=== PATIENT | female | born 1990 | race Caucasian/White ===

== ENCOUNTER 2018-09-03 16:21 | Emergency (ER) | payer SELFPAY ==
[2018-09-03 16:21] VITALS: BP 121/84; PULSE 88; RESP 14; TEMP 37.5; O2SAT 100; BMI 26.5
--- NOTE | 2018-09-03 16:31 | US_ITS ---
STUDY: FIRST TRIMESTER OBSTETRICAL ULTRASOUND REASON FOR EXAM: Female, 28 years old. Intermittent bleeding. Cramping. LMP: 07/27/2018 TECHNIQUE: Transvaginal TECHNICAL QUALITY: Adequate. PRIOR ULTRASOUND: None. FINDINGS: There are 2 separate anechoic structures in the endometrial cavity. One of these is clearly intrauterine gestation with a mean sac diameter of 1.2 cm and within which a normal yolk sac is seen measuring 3 mm. The other is lower in the endometrial cavity and measures 1.2 cm, with some low-level internal echoes and is of uncertain etiology. The placenta is non-visualized. There is visualization of a live embryo. The crown-rump length (CRL) measures 3.2 mm, indicating an estimated gestational age (EGA) of 6 weeks, 0 days. There is demonstrated cardiac activity with a heart rate of 122 bpm. The estimated gestation age (EGA) by LMP is 5 weeks, 3 days. The estimated date of delivery (RONY) by LMP is 05/03/2019. The estimated gestation age (EGA) by US is 6 weeks, 0 days. The estimated date of delivery (RONY) by US is 04/29/2019. The uterus measures 7.9 x 5.8 x 3.9 cm. There is no demonstrated uterine fibroid. The cervix is closed. The right ovary measures 2.5 x 1.9 x 1.5 cm. There is no right ovarian cyst. There is no visualized right adnexal mass or complex lesion. The left ovary measures 3.9 x 2.9 x 2.3 cm. There is a 2.5 cm probable corpus luteum cyst. There is no visualized left adnexal mass or complex lesion. There is no fluid in the cul de sac. US/Transvaginal w/Preg US IMPRESSION: Single live intrauterine gestation with ultrasound EGA of 6 weeks 0 days. Another small anechoic structure seen in the endometrial cavity of uncertain etiology or significance, short interval follow-up recommended. Electronically Signed: Pj Heart MD at 18:00 EDT , Service support ,
[2018-09-03 16:46] VITALS: BP 115/75; PULSE 90; RESP 14; O2SAT 98
[2018-09-03 17:15] LABS: Absolute Lymphocyte Count 1.21 X10^3/ul (0.83-4.51); Absolute Neutrophil Count 3.4 X10^3/uL (2.0-7.7); Basophil# 0.01 X10^3/uL; Basophil% 0.2 % (0-1); Eosinophil# 0.08 X10^3/uL; Eosinophils% 1.5 % (0-5); Hematocrit 38.6 % (37-47); Hemoglobin 13.1 g/dl (12.0-15.0); Lymphocyte # 1.21 X10^3/ul (4.0); Lymphocyte % 22.7 % (19-41); Mean Corp Hgb Conc 33.9 g/gl (32-36); Mean Corpuscular Hgb 29.1 pg (27.0-32.0); Mean Corpuscular Volume 85.8 fL (81-99); Mean Platelet Vol. 9.6 fl (6.2-12.0); Monocyte# 0.57 X10^3/uL; Monocyte% 10.7 % (0-10); Neutrophil # 3.44 X10^3/uL (2.7-7.7); Neutrophil % 64.7 % (47-70); Platelet Count 201 K/mm3 (150-450); RBC Distribution Width CV 12.2 % (11.6-14.6); RBC Distribution Width SD 38.3 fl (35.1-43.9); White Blood Count 5.3 K/mm3 (4.4-11.0)
[2018-09-03 17:18] LABS: POSITIVE COUNT NO; POSITIVE DIFFERENTIAL NO; POSITIVE MORPHOLOGY NO
[2018-09-03 17:37] LABS: hCG Titer Quant., Serum 17890 mIU/mL (<9 non-preg)
[2018-09-03] MEDS: 0.9% Normal Saline 1,000 ML 1000 ML IV (18:31)
[2018-09-03 18:37] LABS: Bacteria 0 SEEN /hpf (None Seen); Mucous, Urine 0 SEEN /hpf (<or=2+)
[2018-09-03 18:40] LABS: Color, Urine Yellow (Yellow); Glucose, Dipstick Normal (Normal); Ketone-Dipstick 15 mg/dl (Negative); Leukocyte Esterase-Dipstick Negative /ul (Negative); Nitrite-Dipstick Negative (Negative); Occult Blood-Urine Negative /ul (Negative); Protein-Dipstick Negative (Negative); Urine Bilirubin Dipstick Negative (Negative); Urine Clarity Sl. Cloudy (Clear); Urine Urobilinogen Normal (Normal)
[2018-09-03 18:52] VITALS: BP 118/70; PULSE 85; RESP 14; O2SAT 98
--- NOTE | 2018-09-03 18:55 | ED.VISSUMM ---
- ER Visit Summary Date of Service: 09/03/18 Chief Complaint: [Vaginal bleeding] History of Present Illness: The patient is a 28 F [presents the emergency department with 2 weeks of bleeding vaginally. Patient had bleeding off and on has been a relatively light. Patient states that she has not bled at all since this morning. Patient was seen at [facility] today and had a positive test so she was referred to the emergency department because she is been complaining of some abdominal cramping. Patient is with one . Patient denies urinary symptoms. She has had no fever. She has no medical history otherwise.] Physical Examination: [HEENT-PERRLA, EOMI. Cranial nerves II through XII grossly intact. TMs clear. Mucous membranes moist. No adenopathy. Cardiovascular-regular rate and rhythm without murmur or ectopy Lungs-clear to auscultation, chest wall stable without crepitus or subcu emphysema Abdomen-normoactive bowel sounds, soft. Patient has some mild diffuse lower abdominal tenderness. There is no rebound, rigidity, or perineal signs. Extremities-intact ?4, normal range of motion, normal pulses, atraumatic] Test Results: [CBC with differential showing a 5.3, hemoglobin 13, hematocrit 39, placed 201. Quantitative hCG was 17,890. Type and Rh was O-. Pelvic ultrasound obtained showed a single live intrauterine measuring 6 weeks 0 days with a heart rate of 122.] Emergency Department Course and Treatment: [Case was discussed with Dr. 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 Patient tells me that she plans on having an .] Treatment Plan: [Patient will be referred to Dr. Jason Weber's office for follow-up or [facility].] Disposition: [Discharged home in stable condition] Impression: [Threatened first trimester ] This note was generated with Latioation software. It may contain incorrect words, spelling, and punctuation that were not noted in review of the chart prior to signing ED Disposition - Plan for ED Patient: Referrals: Sid Taveras MD [Primary Care Provider] -
[2018-09-03 18:56] LABS: Squamous Epithelial Cells - UA 0-5 SEEN /hpf (5-10); Transitional Epithelial - Ur 0-5 SEEN /hpf (0-5)
[2018-09-03 18:57] LABS: Red Blood Cells-Urine 0-5 SEEN /hpf (0-5); White Blood Cells 0-5 SEEN /hpf (0-5)
--- NOTE | 2018-09-03 18:58 | ED.DCSUM_ITS ---
- ER Visit Summary Date of Service: 09/03/18 Chief Complaint: [Vaginal bleeding] History of Present Illness: The patient is a 28 F [presents the emergency department with 2 weeks of bleeding vaginally. Patient had bleeding off and on has been a relatively light. Patient states that she has not bled at all since this morning. Patient was seen at [facility] today and had a positive test so she was referred to the emergency department because she is been complaining of some abdominal cramping. Patient is with one . Patient denies urinary symptoms. She has had no fever. She has no medical history otherwise.] Physical Examination: [HEENT-PERRLA, EOMI. Cranial nerves II through XII grossly intact. TMs clear. Mucous membranes moist. No adenopathy. Cardiovascular-regular rate and rhythm without murmur or ectopy Lungs-clear to auscultation, chest wall stable without crepitus or subcu emphysema Abdomen-normoactive bowel sounds, soft. Patient has some mild diffuse lower abdominal tenderness. There is no rebound, rigidity, or perineal signs. Extremities-intact ?4, normal range of motion, normal pulses, atraumatic] Test Results: [CBC with differential showing a 5.3, hemoglobin 13, hematocrit 39, placed 201. Quantitative hCG was 17,890. Type and Rh was O-. Pelvic ultrasound obtained showed a single live intrauterine measuring 6 weeks 0 days with a heart rate of 122.] Emergency Department Course and Treatment: [Case was discussed with Dr. 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 Patient tells me that she plans on having an .] Treatment Plan: [Patient will be referred to Dr. Jason Weber's office for follow-up or [facility].] Disposition: [Discharged home in stable condition] Impression: [Threatened first trimester ] This note was generated with RELEASEIFation software. It may contain incorrect words, spelling, and punctuation that were not noted in review of the chart prior to signing ED Disposition - Plan for ED Patient: Referrals: Sid Taveras MD [Primary Care Provider] -
--- NOTE | 2018-09-03 18:58 | ED.DEP ---
ED Disposition - Plan for ED Patient: Instructions: ED Miscarriage Poss Referrals: Jason Weber MD [STAFF PHYSICIAN] - 3-5 Days
[2018-09-03 21:09] VITALS: BP 119/69; PULSE 73; RESP 16; O2SAT 100
== END 2018-09-03 21:30 | disposition home or self-care (01) ==
LOC: ED 16:50
PROVIDERS: Emergency Provider Emergency Medicine
DX: O20.0 Threatened abortion (principal); Z3A.01 Less than 8 weeks gestation of pregnancy
CPT/HCPCS: 76817; 81001; 84702; 85025; 86900; 86901; 90384; 96360; 96372; 99282; J2790